=== PATIENT | female | born 1975 | race American Indian/Alaskan Native ===

== ENCOUNTER 2021-03-24 20:54 | Emergency (ER) | payer MEDICAID, OTHER ==
--- NOTE | 2021-03-24 22:00 | EDM.PDOC ---
ED HPI GENERAL MEDICAL PROBLEM - General Chief Complaint: General Stated Complaint: HIGH SUGAR LEVELS Time Seen by Provider: 03/24/21 21:50 Source of Information: Reports: Patient, RN. Denies: Old Records History Limitations: Reports: No Limitations - History of Present Illness INITIAL COMMENTS - FREE TEXT/NARRATIVE: 46 yo NA diabetic female presents with a complaint of high blood sugars. She is just finishing a course of prednisone and also on doxycycline for a respiratory problem. Since being on the prednisone her sugars have been running high. Early this evening her BS was in the 600's so she became alarmed and came in. She took an extra 35 units of her short acting insulin before coming in and has been drinking more water and walking more trying to bring it down. Is a smoker. Onset: Gradual Duration: Day(s):, Getting Worse Location: Reports: Generalized Quality: Reports: Other (no pain) Severity: Severe Improves with: Reports: Medication (insulin) Worsens with: Reports: Other (? 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: Reports: Other (see below) (extra insulin) - Related Data Allergies Allergy/AdvReac Type Severity Reaction Status Date / Time atenolol Allergy Hypertensio Verified 03/24/21 21:34 n metoprolol Allergy Hypertensio Verified 03/24/21 21:34 n pravastatin Allergy Other Verified 03/24/21 21:34 Home Meds: Home Meds Insulin Detemir [Levemir Flextouch] 70 units SUBCUT DAILY 03/24/21 [History] Insulin NPH Hum/Reg Insulin Hm [Novolin 70-30 Flexpen] 15 units SUBCUT ASDIRECTED 03/24/21 [History] Liraglutide [Victoza] 1.8 mg SUBCUT DAILY 03/24/21 [History] Past Medical History HEENT History: Reports: Impaired Vision, Other (See Below) Other HEENT History: glasses Cardiovascular History: Reports: Hypertension Musculoskeletal History: Reports: Fracture, Other (See Below) Other Musculoskeletal History: right ankle fx Psychiatric History: Reports: Anxiety, Depression Endocrine/Metabolic History: Reports: Diabetes, Type II Immunologic History: Reports: Other (See Below) Other Immunologic History: Hep C- Treated Dermatologic History: Reports: Eczema - Infectious Disease History Infectious Disease History: Reports: Chicken Pox, Measles - Past Surgical History GI Surgical History: Reports: Cholecystectomy Social & Family History - Tobacco Use Tobacco Use Status *Q: Current Every Day Tobacco User Years of Tobacco use: 33 Packs/Tins Daily: 0.7 - Caffeine Use Caffeine Use: Reports: Coffee, Soda - Recreational Drug Use Recreational Drug Use: Yes Drug Use in Last 12 Months: Yes Recreational Drug Type: Reports: Methamphetamine Recreational Drug Use Frequency: Monthly Recreational Drug Last Use: x2 weeks ago ED ROS GENERAL - Review of Systems Review Of Systems: See Below Constitutional: Reports: No Symptoms HEENT: Reports: No Symptoms Respiratory: Reports: No Symptoms Cardiovascular: Reports: No Symptoms Endocrine: Reports: High Glucose, Polydypsia, Polyuria GI/Abdominal: Reports: No Symptoms : Reports: Frequency Musculoskeletal: Reports: No Symptoms Skin: Reports: No Symptoms Neurological: Reports: No Symptoms ED EXAM, GENERAL - Physical Exam Exam: See Below Exam Limited By: No Limitations General Appearance: Alert, WD/WN, No Apparent Distress Eye Exam: Bilateral Eye: Normal Inspection Ears: Normal External Exam, Normal Canal, Hearing Grossly Normal, Normal TMs Ear Exam: Bilateral Ear: Auricle Normal, Canal Normal Nose: Normal Inspection, No Blood Throat/Mouth: Normal Inspection, Normal Lips, Normal Oropharynx, Normal Voice, No Airway Compromise Head: Atraumatic, Normocephalic Neck: Normal Inspection Respiratory/Chest: No Respiratory Distress, No Accessory Muscle Use, Wheezing (minimal, faint) Cardiovascular: Regular Rate, Rhythm, No Edema Extremities: Normal Inspection, No Pedal Edema. No: Pedal Edema Neurological: Alert, Oriented, CN II-XII Intact, Normal Cognition Psychiatric: Normal Affect, Normal Mood Skin Exam: Warm, Dry, Intact, Normal Color, No Rash Course - Vital Signs Last Recorded V/S: Last Vital Signs Temp 36.3 C 03/24/21 21:40 Pulse 99 03/24/21 21:40 Resp 18 03/24/21 21:40 BP 181/96 H 03/24/21 21:40 Pulse Ox 98 03/24/21 21:40 - Orders/Labs/Meds Labs: Laboratory Tests 03/24/21 03/24/21 Range/Units 21:27 21:28 POC Glucose 389 H (74-106) mg/dL Urine Color Yellow (YELLOW) Urine Appearance Clear (CLEAR) Urine pH 7.0 (5.0-8.0) Ur Specific [place] 1.015 (1.008-1.030) Urine Protein 30 H (NEGATIVE) mg/dL Urine Glucose (UA) 500 H (NEGATIVE) mg/dL Urine Ketones Negative (NEGATIVE) mg/dL Urine Occult Blood Trace-intact H (NEGATIVE) Urine Nitrite Negative (NEGATIVE) Urine Bilirubin Negative (NEGATIVE) Urine Urobilinogen 0.2 (0.2-1.0) EU/dL Ur Leukocyte Esterase Negative (NEGATIVE) Urine RBC 0-5 (0-5) Urine WBC Not seen (0-5) Ur Epithelial Cells Few Amorphous Sediment Not seen Urine Bacteria Few Urine Mucus Not seen Departure - Departure Time of Disposition: 22:01 Disposition: Home, Self-Care 01 Condition: Fair Clinical Impression: Elevated blood sugar - Discharge Information *PRESCRIPTION DRUG MONITORING PROGRAM REVIEWED*: Not Applicable *COPY OF PRESCRIPTION DRUG MONITORING REPORT IN PATIENT ALESSANDRA: Not Applicable Referrals: PCP,None [Primary Care Provider] - Additional Instructions: Take an extra dose of 20 units of short acting insulin when you get home. Work on stopping smoking. Stop your prednisone. Talk to your doctor in the morning about your blood sugars. Sepsis Event Note (ED) - Evaluation Sepsis Screening Result: No Definite Risk - Focused Exam Vital Signs: Vital Signs Temp Pulse Resp BP Pulse Ox 03/24/21 21:40 36.3 C 99 18 181/96 H 98 03/24/21 21:11 36.3 C 99 18 181/96 H 98
== END 2021-03-24 22:15 | disposition home or self-care (01) ==
LOC: JP.ED 20:54
DX: E11.65 Type 2 diabetes mellitus with hyperglycemia (principal); I10 Essential (primary) hypertension; Z88.8 Allergy status to other drugs, medicaments and biological substances; Z79.4 Long term (current) use of insulin; Z72.0 Tobacco use
CPT/HCPCS: 81001; 82947; 99284

== ENCOUNTER 2022-05-02 16:40 | Emergency (ER) | payer MEDICAID ==
[2022-05-02] MEDS ORDERED: LORazepam 2 MG/ML SDV IM ONE (17:13)
[2022-05-02 17:48] LABS: ESTIMATED GFR 47 mL/min (>60)
== END 2022-05-02 19:44 | disposition home or self-care (01) ==
LOC: EDBD 16:40 → MERGE 16:40 → JP.ED 16:40
DX: E11.65 Type 2 diabetes mellitus with hyperglycemia (principal); E11.40 Type 2 diabetes mellitus with diabetic neuropathy, unspecified; I10 Essential (primary) hypertension; F17.210 Nicotine dependence, cigarettes, uncomplicated; Z79.899 Other long term (current) drug therapy
CPT/HCPCS: 36415; 73630-26-RT; 73630-RT; 80053; 80305-QW; 80307; 81001; 85025; 96372; 99282; 99283; J2060